=== PATIENT | male | born 1995 | race Hispanic/Latino ===

== ENCOUNTER 2024-07-28 05:02 | Emergency (ER) | payer OTHER ==
[~2024-07-28] VITALS: Ht 167.6 cm; Wt 90.7 kg
[2024-07-28 05:09] VITALS: PULSE 72; RESP 20; TEMP 98.5; O2SAT 99
[2024-07-28 05:52] LABS: BASOPHILS % 0.4 % (0.0-1.0); EOSINOPHILS # (AUTO) 0.1 (0.0-0.4); EOSINOPHILS % 1.8 % (0.0-6.0); HEMATOCRIT 42.6 % (38.2-49.6); HEMOGLOBIN 15.2 g/dL (14.0-18.0); LYMPHOCYTES # (AUTO) 1.6 (1.0-3.2); LYMPHOCYTES % 21.5 % (18.0-39.1); MEAN CORPUSCULAR HGB CONC 35.7 g/dL (31-35); MONOCYTES # (AUTO) 0.5 (0.2-0.8); MONOCYTES % 6.9 % (4.4-11.3); NEUTROPHILS % 68.7 % (38.7-80.0); PLATELET COUNT 298 x10e3/uL (140-360); RED BLOOD COUNT 5.07 x10e6/uL (4.3-5.7); RED CELL DISTRIBUTION WIDTH 11.6 % (11.7-14.4); WHITE BLOOD COUNT 7.26 x10e3/uL (4.8-10.8)
[2024-07-28] MEDS: KETOROLAC TROMETHAMINE 30 MG/ML VIAL IV STA (05:55)
[2024-07-28 06:04] LABS: BILIRUBIN,URINE NEGATIVE (NEGATIVE); CLARITY,URINE HAZY (CLEAR); COLOR,URINE YELLOW (YELLOW); GLUCOSE, URINE NEGATIVE (NEGATIVE); KETONES,URINE NEGATIVE (NEGATIVE); LEUKOCYTE ESTERASE ,URINE NEGATIVE (NEGATIVE); NITRITE,URINE NEGATIVE (NEGATIVE); PH,URINE 5.5 (5 - 7); PROTEIN,URINE DIPSTICK 1+ (NEGATIVE); URINE UROBILINOGEN 0.2 mg/dL (0.2 - 1)
[2024-07-28 06:08] LABS: BACTERIA,URINE FEW /HPF; EPITHELIAL CELLS,URINE RARE /LPF; RBC,URINE >50 /HPF (0-5); WBC,URINE (MAN) 0-5 /HPF (0-5)
[2024-07-28 06:15] LABS: ALBUMIN 4.1 g/dL (3.5-5.0); ALBUMIN/GLOBULIN RATIO 1.4 (0.8-2.0); ANION GAP 14.8 mmol/L (8-16); BILIRUBIN,TOTAL 0.6 mg/dL (0.2-1.2); CALCIUM 9.2 mg/dL (8.4-10.2); CREATININE, SERUM 0.89 mg/dL (0.72-1.25); POTASSIUM 3.8 mmol/L (3.5-5.1)
[2024-07-28] MEDS ORDERED: IOPAMIDOL 370 MG/ML 100 ML INFUS..BTL INJ ONE (06:25)
[2024-07-28] MEDS ORDERED: FLOMAX0.4 MG PO (07:31)
[2024-07-28] MEDS ORDERED: ONDANSETRON ODT4 MG PO (07:31)
[2024-07-28] MEDS ORDERED: ULTRAM 50MG50 MG PO (07:31)
[2024-07-28] MEDS ORDERED: KETOROLAC TROME10 MG PO (07:31)
== END 2024-07-28 07:45 | disposition home or self-care (01) ==
LOC: ER 05:09
DX: R10.32 Left lower quadrant pain (principal); N20.1 Calculus of ureter; K42.9 Umbilical hernia without obstruction or gangrene; J45.909 Unspecified asthma, uncomplicated
CPT/HCPCS: 36415; 74018; 74177; 80053; 81001; 85025; 99284; J1885; Q9967